=== PATIENT | male | born 1995 | race African-American/Black ===

== ENCOUNTER 2019-07-12 20:31 | Emergency (ER) | payer SELFPAY ==
[2019-07-12] MEDS ORDERED: Ibuprofen 200 MG TAB ONE (21:36)
== END 2019-07-12 21:41 | disposition home or self-care (01) ==
LOC: ERS 20:31
DX: H92.02 Otalgia, left ear (principal); K02.9 Dental caries, unspecified; K03.81 Cracked tooth
CPT/HCPCS: 99282

== ENCOUNTER 2020-01-08 13:56 | Emergency (ER) | payer OTHER, SELFPAY ==
[2020-01-09 12:37] LABS: SARS-CoV-2 MS2 Positive; SARS-CoV-2 N Gene Positive; SARS-CoV-2 S Gene Positive; SARS-CoV-2 orf1ab Positive
== END 2020-01-08 14:25 | disposition home or self-care (01) ==
LOC: ERS 13:56
DX: U07.1 COVID-19 (principal)
CPT/HCPCS: 87635; 99283; U0003

== ENCOUNTER 2020-01-22 14:40 | Emergency (ER) | payer OTHER, SELFPAY ==
[2020-01-23 12:21] LABS: SARS-CoV-2 MS2 Positive; SARS-CoV-2 N Gene Positive; SARS-CoV-2 S Gene Positive; SARS-CoV-2 by NAA DETECTED (NotDetected); SARS-CoV-2 orf1ab Positive
== END 2020-01-22 15:07 | disposition home or self-care (01) ==
LOC: ERS 14:40
DX: U07.1 COVID-19 (principal)
CPT/HCPCS: 87635; 99283; U0003

== ENCOUNTER 2020-03-24 19:38 | Emergency (ER) | payer SELFPAY ==
[2020-03-24] MEDS ORDERED: Oxymetazoline HCl 0.05% (30 ML BOT) ONE (20:41)
== END 2020-03-24 20:45 | disposition home or self-care (01) ==
LOC: ERS 19:38
DX: R04.0 Epistaxis (principal)
CPT/HCPCS: 99283